=== PATIENT | male | born 1940 | race Caucasian/White ===

== ENCOUNTER 2020-10-06 10:13 | Observation (INO) | payer MEDICARE ==
[2020-10-06 10:58] LABS: #Basophils 0.1 10x3/uL (0.0-0.2); #Eosinphils 0.1 10x3/uL (0.0-0.5); #Monocytes 0.7 10x3/uL (0.0-1.1); #Neutrophils 4.6 10x3/uL (1.5-8.4); %Basophils 1.1 % (0.0-2.0); %Lymphocytes 33.2 % (18.0-47.0); %Monocytes 8.8 % (0.0-10.0); %Neutrophils 55.4 % (40.0-75.0); Hemoglobin 15.8 g/dL (13.5-17.5); Mean Corpuscular HGB CONC 34.6 g/dL (32.0-36.0); Mean Corpuscular Hemoglobin 30.9 pg (27.0-33.0); Mean Corpuscular Volume 89.4 fl (81.2-95.1); Mean Platelet Volume 11.8 fl (7.4-10.4); Platelet Count 210 10x3/uL (150-450); RBC Distribution Width 13.9 % (11.5-14.5); Red Blood Cell (RBC) Count 5.11 10x6/uL (4.32-5.72); White Blood Cell (WBC) Count 8.3 10x3/uL (3.5-10.5)
[2020-10-06 11:17] LABS: ALT (SGPT) 20 U/L (8-55); AST (SGOT) 22 U/L (5-34); Albumin 4.4 g/dL (3.4-4.8); Alkaline Phosphatase 90 U/L (40-110); Anion Gap 15 mmol/L (10-20); BUN (Urea Nitrogen) 14 mg/dL (8.4-25.7); Bilirubin, Total 1.1 mg/dL (0.2-1.2); Calc. Creatinine Clearance 0 mL/min (70-130); Calcium 9.1 mg/dL (7.8-10.44); Carbon Dioxide 26 mmol/L (23-31); Chloride 104 mmol/L (98-107); D-Dimer Test 0.2 mg/L FEU (0.19-0.50); Globulin 1.8 g/dL (2.4-3.5); Glucose 102 mg/dL (83-110); INR-International Normal Ratio 1.1; Magnesium 2.3 mg/dL (1.6-2.6); PTT 32.3 sec (22.0-33.0); Potassium 4.5 mmol/L (3.5-5.1); Protein, Total 6.2 g/dL (5.8-8.1); Prothrombin Time 12.2 sec (9.5-12.1); Sodium 140 mmol/L (136-145)
[2020-10-06] MEDS ORDERED: Acetaminophen 325 MG TAB PO PRN (12:14)
[2020-10-06] MEDS ORDERED: Ondansetron PF 4 MG/2 ML Vial IVP PRN (12:14)
[2020-10-06 16:43] VITALS: BMI 27.2
[2020-10-06] MEDS: Apixaban 5 MG TAB PO SCH (20:32)
[2020-10-06] MEDS ORDERED: Atorvastatin Calcium 40 MG TAB PO SCH (21:00)
[2020-10-07 01:20] LABS: SARS-CoV-2 PCR by NAA Not Detected (NotDetected)
[2020-10-07 05:05] LABS: #Basophils 0.1 10x3/uL (0.0-0.2); #Eosinphils 0.1 10x3/uL (0.0-0.5); #Monocytes 0.6 10x3/uL (0.0-1.1); %Basophils 0.9 % (0.0-2.0); %Eosinophils 1.9 % (0.0-6.0); %Lymphocytes 35.5 % (18.0-47.0); %Monocytes 8.4 % (0.0-10.0); Hemoglobin 15.3 g/dL (13.5-17.5); Mean Corpuscular HGB CONC 33.6 g/dL (32.0-36.0); Mean Corpuscular Hemoglobin 30.5 pg (27.0-33.0); Mean Corpuscular Volume 90.8 fl (81.2-95.1); Mean Platelet Volume 12.1 fl (7.4-10.4); Platelet Count 192 10x3/uL (150-450); RBC Distribution Width 13.6 % (11.5-14.5); Red Blood Cell (RBC) Count 5.01 10x6/uL (4.32-5.72); White Blood Cell (WBC) Count 7.5 10x3/uL (3.5-10.5)
[2020-10-07 05:24] LABS: ALT (SGPT) 16 U/L (8-55); AST (SGOT) 23 U/L (5-34); Albumin 3.8 g/dL (3.4-4.8); Alkaline Phosphatase 76 U/L (40-110); Anion Gap 15 mmol/L (10-20); BUN (Urea Nitrogen) 15 mg/dL (8.4-25.7); Bilirubin, Total 0.9 mg/dL (0.2-1.2); Calc. Creatinine Clearance 91 mL/min (70-130); Calcium 8.3 mg/dL (7.8-10.44); Carbon Dioxide 21 mmol/L (23-31); Chloride 106 mmol/L (98-107); Glucose 89 mg/dL (83-110); Potassium 3.9 mmol/L (3.5-5.1); Protein, Total 5.8 g/dL (5.8-8.1); Sodium 138 mmol/L (136-145)
[2020-10-07 08:17] VITALS: TEMP 97.9
[2020-10-07] MEDS: Apixaban 5 MG TAB PO SCH (08:53)
[2020-10-07] MEDS ORDERED: Aspirin 81 mg Enteric Coated Tablet PO SCH (09:00)
[2020-10-07 15:27] VITALS: BP 147/98
== END 2020-10-07 15:20 | disposition home or self-care (01) ==
LOC: CSHERS 10:13 → SUATTDRO 10:13 → CSHTELE 16:00
PROVIDERS: ADMIT Internal Medicine; ATTEND Internal Medicine
DX: R55 Syncope and collapse (principal); I48.91 Unspecified atrial fibrillation; I38 Endocarditis, valve unspecified; Z79.899 Other long term (current) drug therapy; I10 Essential (primary) hypertension; E78.5 Hyperlipidemia, unspecified; Z79.01 Long term (current) use of anticoagulants; Z86.73 Personal history of transient ischemic attack (TIA), and cerebral infarction without residual deficits; Z20.822 Contact with and (suspected) exposure to COVID-19
CPT/HCPCS: 71045; 80053 ×2; 83735; 83880; 84484; 85025 ×2; 85379; 85610; 85730; 93005; 93306; 93880; 94760; 97116; 97139 ×3; 99285; U0003; U0005; 87635; G0378

== ENCOUNTER 2020-10-14 09:29 | Inpatient (IN) | payer MEDICARE ==
[2020-10-14 10:21] LABS: #Basophils 0.1 10x3/uL (0.0-0.2); #Eosinphils 0.1 10x3/uL (0.0-0.5); #Monocytes 0.6 10x3/uL (0.0-1.1); #Neutrophils 3.8 10x3/uL (1.5-8.4); %Basophils 0.9 % (0.0-2.0); %Eosinophils 1.5 % (0.0-6.0); %Lymphocytes 30.1 % (18.0-47.0); %Monocytes 8.8 % (0.0-10.0); %Neutrophils 58.4 % (40.0-75.0); Hemoglobin 15.1 g/dL (13.5-17.5); Mean Corpuscular HGB CONC 33.9 g/dL (32.0-36.0); Mean Corpuscular Hemoglobin 30.9 pg (27.0-33.0); Mean Corpuscular Volume 91.2 fl (81.2-95.1); Mean Platelet Volume 11.7 fl (7.4-10.4); Platelet Count 207 10x3/uL (150-450); RBC Distribution Width 13.8 % (11.5-14.5); Red Blood Cell (RBC) Count 4.88 10x6/uL (4.32-5.72); White Blood Cell (WBC) Count 6.6 10x3/uL (3.5-10.5)
[2020-10-14 10:43] LABS: ALT (SGPT) 17 U/L (8-55); AST (SGOT) 17 U/L (5-34); Albumin 4.4 g/dL (3.4-4.8); Alkaline Phosphatase 90 U/L (40-110); Anion Gap 14 mmol/L (10-20); BUN (Urea Nitrogen) 14 mg/dL (8.4-25.7); CK (CPK) 108 U/L (30-200); Calc. Creatinine Clearance 0 mL/min (70-130); Calcium 8.9 mg/dL (7.8-10.44); Carbon Dioxide 27 mmol/L (23-31); Chloride 103 mmol/L (98-107); Globulin 1.6 g/dL (2.4-3.5); Glucose 136 mg/dL (83-110); Sodium 140 mmol/L (136-145)
[2020-10-14 12:19] LABS: Bilirubin Neg (Negative); Blood, Urine Negative (Negative); Clarity Clear (Clear); Glucose, Urine (Dipstick) Normal (Negative); Ketone, Urine Negative (Negative); Leukocyte Negative (Negative); Nitrite Negative (Negative); Protein, Urine (Dipstick) Negative (Neg-Trace); Urobilinogen Normal mg/dL (Less than 2)
[2020-10-14] MEDS ORDERED: Ondansetron PF 4 MG/2 ML Vial IVP PRN (12:25)
[2020-10-14] MEDS ORDERED: Ondansetron ODT 4 MG TAB PO PRN (12:25)
[2020-10-14] MEDS ORDERED: Acetaminophen 325 MG TAB PO PRN (12:25)
[2020-10-14] MEDS ORDERED: Acetaminophen 650 MG Suppository PR PRN (12:25)
[2020-10-14 13:06] LABS: Troponin I 0.011 ng/mL (< 0.028)
[2020-10-14 15:06] VITALS: BMI 27.2
[2020-10-14 16:47] LABS: Troponin I Less than 0.010 ng/mL (< 0.028)
[2020-10-14] MEDS ORDERED: Atorvastatin Calcium 40 MG TAB PO SCH (21:00)
[2020-10-14] MEDS ORDERED: Propafenone HCl 150 MG TAB PO SCH (21:00)
[2020-10-15 01:17] LABS: SARS-CoV-2 PCR by NAA Not Detected (NotDetected)
[2020-10-15 04:42] LABS: #Basophils 0.1 10x3/uL (0.0-0.2); #Eosinphils 0.1 10x3/uL (0.0-0.5); #Monocytes 0.6 10x3/uL (0.0-1.1); %Basophils 0.9 % (0.0-2.0); %Eosinophils 1.4 % (0.0-6.0); %Lymphocytes 30.1 % (18.0-47.0); %Neutrophils 58.3 % (40.0-75.0); Hemoglobin 14.4 g/dL (13.5-17.5); Mean Corpuscular HGB CONC 33.5 g/dL (32.0-36.0); Mean Corpuscular Hemoglobin 30.5 pg (27.0-33.0); Mean Corpuscular Volume 91.1 fl (81.2-95.1); Mean Platelet Volume 11.4 fl (7.4-10.4); Platelet Count 188 10x3/uL (150-450); RBC Distribution Width 13.7 % (11.5-14.5); Red Blood Cell (RBC) Count 4.72 10x6/uL (4.32-5.72); White Blood Cell (WBC) Count 6.9 10x3/uL (3.5-10.5)
[2020-10-15 04:55] LABS: Anion Gap 14 mmol/L (10-20); BUN (Urea Nitrogen) 14 mg/dL (8.4-25.7); Calc. Creatinine Clearance 84 mL/min (70-130); Calcium 8.4 mg/dL (7.8-10.44); Carbon Dioxide 24 mmol/L (23-31); Chloride 105 mmol/L (98-107); Glucose 103 mg/dL (83-110); Potassium 3.7 mmol/L (3.5-5.1); Sodium 139 mmol/L (136-145)
[2020-10-15] MEDS ORDERED: CEFAZOLIN 1 GM VIAL ONE ×2 (07:25→07:51)
[2020-10-15] MEDS ORDERED: Gentamicin 80 MG/2 ML VIAL ONE (07:25)
[2020-10-15] MEDS ORDERED: Lidocaine 1% (PF) 30 ML VIAL ONE (07:31)
[2020-10-15] MEDS ORDERED: Midazolam HCl 5 mg/5 ml Vial ONE (08:05)
[2020-10-15] MEDS ORDERED: Fentanyl 100 MCG/2 ML VIAL ONE (08:05)
[2020-10-15] MEDS ORDERED: Metoprolol Tartrate 25 MG TAB PO SCH ×2 (09:45→21:00)
[2020-10-15 13:06] VITALS: BP 136/69; TEMP 98.3
[2020-10-15] MEDS ORDERED: Propafenone HCl 150 MG TAB PO SCH (21:00)
[2020-10-15] MEDS ORDERED: Cefadroxil Hydrate 250 mg/5 ml Suspensio PO SCH (21:00)
== END 2020-10-15 15:05 | disposition home or self-care (01) | DRG 243 ==
LOC: CSHERS 09:29 → CSHTELE 14:32
PROVIDERS: ADMIT Internal Medicine; ATTEND Internal Medicine
PROC: 0JH606Z Insertion of Pacemaker, Dual Chamber into Chest Subcutaneous Tissue and Fascia, Open Approach (ICD-10-PCS; principal; 2020-10-15)
PROC: 02HK3JZ Insertion of Pacemaker Lead into Right Ventricle, Percutaneous Approach (ICD-10-PCS; 2020-10-15)
PROC: 02H63JZ Insertion of Pacemaker Lead into Right Atrium, Percutaneous Approach (ICD-10-PCS; 2020-10-15)
DX: I49.5 Sick sinus syndrome (principal); I48.19 Other persistent atrial fibrillation; Z20.822 Contact with and (suspected) exposure to COVID-19; S00.81XA Abrasion of other part of head, initial encounter; I10 Essential (primary) hypertension; E78.5 Hyperlipidemia, unspecified; Z79.01 Long term (current) use of anticoagulants; Z98.42 Cataract extraction status, left eye; Z98.41 Cataract extraction status, right eye; Z79.82 Long term (current) use of aspirin; Z79.899 Other long term (current) drug therapy; M54.9 Dorsalgia, unspecified; W19.XXXA Unspecified fall, initial encounter; G62.9 Polyneuropathy, unspecified; M21.372 Foot drop, left foot; M21.371 Foot drop, right foot; Z82.49 Family history of ischemic heart disease and other diseases of the circulatory system
CPT/HCPCS: 33208; 36415; 70450; 71045; 80048; 80053; 81003; 82550; 83735; 83880; 84484; 85025; 87635; 93005; 99152; 99153; J0690; J1580; J2001; J2250; J3010; U0003; U0005

== ENCOUNTER 2020-10-31 19:03 | Inpatient (IN) | payer MEDICARE ==
[2020-10-31] MEDS ORDERED: methylPREDNISolone Sod Succ/PF 125 MG/2 ML VIAL ONE (19:14)
[2020-10-31] MEDS ORDERED: Famotidine/PF 20 mg/2ml Vial ONE (19:15)
[2020-10-31] MEDS ORDERED: diphenhydrAMINE 50 MG/ML VIAL ONE (19:15)
[2020-10-31] MEDS ORDERED: Ketamine 50 MG/ML (10ML VIAL) ONE (19:31)
[2020-10-31] MEDS ORDERED: Racepinephrine 2.25% 0.5 ML NEB ONE (19:34)
[2020-10-31] MEDS ORDERED: Rocuronium Bromide 10 MG/ML (10ML VIAL) ONE (19:35)
[2020-10-31 19:44] LABS: #Basophils 0.1 10x3/uL (0.0-0.2); #Eosinphils 0.3 10x3/uL (0.0-0.5); #Monocytes 0.8 10x3/uL (0.0-1.1); #Neutrophils 5.4 10x3/uL (1.5-8.4); %Basophils 0.5 % (0.0-2.0); %Eosinophils 2.9 % (0.0-6.0); %Lymphocytes 35.7 % (18.0-47.0); %Monocytes 7.5 % (0.0-10.0); %Neutrophils 53.2 % (40.0-75.0); Hemoglobin 14.2 g/dL (13.5-17.5); Mean Corpuscular Hemoglobin 30.3 pg (27.0-33.0); Mean Corpuscular Volume 91.9 fl (81.2-95.1); Mean Platelet Volume 11.2 fl (7.4-10.4); Platelet Count 215 10x3/uL (150-450); Red Blood Cell (RBC) Count 4.68 10x6/uL (4.32-5.72); White Blood Cell (WBC) Count 10.1 10x3/uL (3.5-10.5)
[2020-10-31 19:52] LABS: ALT (SGPT) 24 U/L (8-55); AST (SGOT) 23 U/L (5-34); Albumin 4.2 g/dL (3.4-4.8); Alkaline Phosphatase 122 U/L (40-110); Anion Gap 13 mmol/L (10-20); BUN (Urea Nitrogen) 19 mg/dL (8.4-25.7); Bilirubin, Total 0.8 mg/dL (0.2-1.2); Calc. Creatinine Clearance 0 mL/min (70-130); Calcium 9.2 mg/dL (7.8-10.44); Carbon Dioxide 27 mmol/L (23-31); Chloride 102 mmol/L (98-107); Globulin 1.8 g/dL (2.4-3.5); Glucose 155 mg/dL (83-110); Sodium 138 mmol/L (136-145)
[2020-10-31] MEDS ORDERED: Amiodarone 150 MG/3 ML VIAL ONE (19:53)
[2020-10-31] MEDS ORDERED: fentaNYL Citrate/PF 50 MCG/ML (20ML VIAL) ONE (19:56)
[2020-10-31] MEDS ORDERED: Amiodarone In Dextrose 200 ML ONE (20:10)
[2020-10-31] MEDS ORDERED: Ondansetron PF 4 MG/2 ML Vial IVP PRN (20:31)
[2020-10-31] MEDS ORDERED: fentaNYL Citrate/PF 2,000 MCG in Sodium Chloride 0.9% 60 ML IV PRN (20:35)
[2020-10-31] MEDS ORDERED: Diltiazem 125 MG/25 ML ONE (21:09)
[2020-10-31 21:45] LABS: Bilirubin Neg (Negative); Blood, Urine 10 (Negative); Clarity Clear (Clear); Glucose, Urine (Dipstick) Normal (Negative); Ketone, Urine Negative (Negative); Leukocyte Negative (Negative); Nitrite Negative (Negative); Protein, Urine (Dipstick) 100 mg/dl (Neg-Trace); Specific Gravity, Urine 1.025 (1.002-1.036)
[2020-10-31 21:56] LABS: Bacteria/HPF 2+ HPF (None Seen); Mucous/LPF 1+ LPF (<2+); RBC/HPF 0-3 HPF (0-3); Squamous Epithelial 0-3 HPF (0-3); WBC/HPF 0-3 HPF (0-3)
[2020-10-31 22:14] LABS: SARS-CoV-2 NAA Rapid Test Not Detected (NotDetected)
[2020-10-31 23:11] VITALS: BMI 30.1
[2020-10-31] MEDS ORDERED: methylPREDNISolone Sod Succ/PF 125 MG/2 ML VIAL IVP SCH (23:15)
[2020-10-31] MEDS ORDERED: Diltiazem 125 MG in Sodium Chloride 0.9% 100 ML IVPB SCH (23:15)
[2020-10-31] MEDS ORDERED: fentaNYL Citrate-0.9 % NaCl/PF 100 ML IVPB SCH (23:30)
[2020-10-31] MEDS ORDERED: Enoxaparin Sodium 100 MG/ML SYRINGE SC SCH (23:45)
[2020-10-31] MEDS: Atorvastatin Calcium 40 MG TAB PO SCH (23:56)
[2020-11-01] MEDS: Propofol 1,000 MG/100 ML VIAL IV PRN ×3 (00:02→23:16)
[2020-11-01] MEDS: Famotidine/PF 20 mg/2ml Vial SLOW IVP SCH ×3 (00:03→21:11)
[2020-11-01] MEDS: Propafenone HCl 150 MG TAB PO SCH ×3 (00:04→21:12)
[2020-11-01] MEDS: diphenhydrAMINE 50 MG/ML VIAL IVP SCH ×5 (00:22→23:15)
[2020-11-01 01:04] LABS: Actual Bicarbonate (HCO3a) 23.7 mEq/L (22-28); Base Excess (BEa) -1.6 mEq/L (-2.0 to +3.0); Calcium, Ionized (arterial) 1.11 mmol/L (1.12-1.30); Carboxyhemoglobin (COHb) 0.4 gm% (0.0-3.0); Hemoglobin (Hb) 13.3 g/dL (14.0-18.0); O2 Tension (PaO2), arterial 107.3 mmHg (> 60.0); Puncture Site RRA; pH, Arterial 7.37 (7.35-7.45)
[2020-11-01] MEDS: methylPREDNISolone Sod Succ 40 MG VIAL IVP SCH ×4 (03:23→21:11)
[2020-11-01 04:30] LABS: #Monocytes 0.2 10x3/uL (0.0-1.1); #Neutrophils 8.8 10x3/uL (1.5-8.4); %Basophils 0.2 % (0.0-2.0); %Lymphocytes 6.5 % (18.0-47.0); %Monocytes 1.8 % (0.0-10.0); Hemoglobin 13.3 g/dL (13.5-17.5); Mean Corpuscular HGB CONC 32.7 g/dL (32.0-36.0); Mean Corpuscular Hemoglobin 30.8 pg (27.0-33.0); Mean Corpuscular Volume 94.2 fl (81.2-95.1); Mean Platelet Volume 11.3 fl (7.4-10.4); Platelet Count 184 10x3/uL (150-450); Red Blood Cell (RBC) Count 4.32 10x6/uL (4.32-5.72); White Blood Cell (WBC) Count 9.6 10x3/uL (3.5-10.5)
[2020-11-01 04:44] LABS: ALT (SGPT) 25 U/L (8-55); AST (SGOT) 21 U/L (5-34); Albumin 3.7 g/dL (3.4-4.8); Alkaline Phosphatase 112 U/L (40-110); Anion Gap 14 mmol/L (10-20); BUN (Urea Nitrogen) 21 mg/dL (8.4-25.7); Bilirubin, Total 0.8 mg/dL (0.2-1.2); Calc. Creatinine Clearance 84 mL/min (70-130); Carbon Dioxide 20 mmol/L (23-31); Chloride 105 mmol/L (98-107); Globulin 1.9 g/dL (2.4-3.5); Glucose 207 mg/dL (83-110); Potassium 4.6 mmol/L (3.5-5.1); Protein, Total 5.6 g/dL (5.8-8.1); Sodium 134 mmol/L (136-145)
[2020-11-01] MEDS ORDERED: Enoxaparin Sodium 100 MG/ML SYRINGE ONE (07:54)
[2020-11-01] MEDS: Enoxaparin Sodium 100 MG/ML SYRINGE SC SCH ×2 (07:56→21:11)
[2020-11-01] MEDS ORDERED: Enoxaparin Sodium 100 MG/ML SYRINGE SC SCH (09:00)
[2020-11-01] MEDS: Vit A,C & E/Lutein/Minerals Tablet PO SCH ×2 (09:21→16:43)
[2020-11-01 10:05] LABS: Actual Bicarbonate (HCO3a) 20.2 mEq/L (22-28); CO2 Tension 34.5 mmHg (35.0-45.0); Calcium, Ionized (arterial) 1.12 mmol/L (1.12-1.30); Carboxyhemoglobin (COHb) 0.6 gm% (0.0-3.0); Hemoglobin (Hb) 14.2 g/dL (14.0-18.0); O2 Tension (PaO2), arterial 86.3 mmHg (> 60.0); Potassium - ABG Lab 4.1 mmol/L (3.70-5.30); Puncture Site RRA; pH, Arterial 7.39 (7.35-7.45)
[2020-11-01 10:08] LABS: ALV-art Gradient 155.775 mmHg (0-20)
[2020-11-01] MEDS: Metoprolol Tartrate 25 MG TAB PO SCH ×2 (10:19→21:11)
[2020-11-01] MEDS: Atorvastatin Calcium 40 MG TAB PO SCH (21:10)
[2020-11-02] MEDS: methylPREDNISolone Sod Succ 40 MG VIAL IVP SCH ×4 (03:50→21:04)
[2020-11-02] MEDS: Propofol 1,000 MG/100 ML VIAL IV PRN (04:10)
[2020-11-02 04:15] LABS: #Monocytes 0.6 10x3/uL (0.0-1.1); #Neutrophils 9.9 10x3/uL (1.5-8.4); %Basophils 0.2 % (0.0-2.0); %Eosinophils 0.1 % (0.0-6.0); %Lymphocytes 9.4 % (18.0-47.0); %Monocytes 5.2 % (0.0-10.0); %Neutrophils 84.3 % (40.0-75.0); Hemoglobin 13.1 g/dL (13.5-17.5); Mean Corpuscular HGB CONC 33.4 g/dL (32.0-36.0); Mean Corpuscular Hemoglobin 30.5 pg (27.0-33.0); Mean Corpuscular Volume 91.2 fl (81.2-95.1); Mean Platelet Volume 11.7 fl (7.4-10.4); Platelet Count 175 10x3/uL (150-450); RBC Distribution Width 14.5 % (11.5-14.5); White Blood Cell (WBC) Count 11.8 10x3/uL (3.5-10.5)
[2020-11-02] MEDS: diphenhydrAMINE 50 MG/ML VIAL IVP SCH ×4 (05:39→23:47)
[2020-11-02] MEDS: Famotidine/PF 20 mg/2ml Vial SLOW IVP SCH ×2 (07:51→21:04)
[2020-11-02] MEDS: Vit A,C & E/Lutein/Minerals Tablet PO SCH ×2 (07:51→14:50)
[2020-11-02] MEDS: Enoxaparin Sodium 100 MG/ML SYRINGE SC SCH ×2 (07:51→21:03)
[2020-11-02] MEDS: Propafenone HCl 150 MG TAB PO SCH ×2 (07:52→21:04)
[2020-11-02] MEDS: Metoprolol Tartrate 25 MG TAB PO SCH ×2 (07:52)
[2020-11-02 08:57] LABS: Anion Gap 16 mmol/L (10-20); BUN (Urea Nitrogen) 23 mg/dL (8.4-25.7); Calc. Creatinine Clearance 76 mL/min (70-130); Calcium 8.8 mg/dL (7.8-10.44); Carbon Dioxide 23 mmol/L (23-31); Chloride 105 mmol/L (98-107); Glucose 160 mg/dL (83-110); Potassium 5.5 mmol/L (3.5-5.1); Sodium 138 mmol/L (136-145)
[2020-11-02 09:03] LABS: Actual Bicarbonate (HCO3a) 21.6 mEq/L (22-28); Base Excess (BEa) -2.1 mEq/L (-2.0 to +3.0); Calcium, Ionized (arterial) 1.12 mmol/L (1.12-1.30); Carboxyhemoglobin (COHb) 0.4 gm% (0.0-3.0); Hemoglobin (Hb) 14.8 g/dL (14.0-18.0); Potassium - ABG Lab 4.2 mmol/L (3.70-5.30); Puncture Site RRA; pH, Arterial 7.42 (7.35-7.45)
[2020-11-02] MEDS ORDERED: Metoprolol Tartrate 25 MG TAB PO SCH ×2 (12:30→21:00)
[2020-11-02] MEDS: Atorvastatin Calcium 40 MG TAB PO SCH (21:03)
[2020-11-03] MEDS ORDERED: Metoprolol Tartrate 25 MG TAB PO SCH (01:45)
[2020-11-03] MEDS: methylPREDNISolone Sod Succ 40 MG VIAL IVP SCH ×3 (02:19→20:06)
[2020-11-03 04:47] LABS: #Monocytes 0.4 10x3/uL (0.0-1.1); #Neutrophils 8.3 10x3/uL (1.5-8.4); %Lymphocytes 5.8 % (18.0-47.0); %Monocytes 3.8 % (0.0-10.0); %Neutrophils 89.7 % (40.0-75.0); Hemoglobin 12.9 g/dL (13.5-17.5); Mean Corpuscular Hemoglobin 30.7 pg (27.0-33.0); Mean Corpuscular Volume 93.1 fl (81.2-95.1); Mean Platelet Volume 11.6 fl (7.4-10.4); Platelet Count 198 10x3/uL (150-450); RBC Distribution Width 14.7 % (11.5-14.5); White Blood Cell (WBC) Count 9.2 10x3/uL (3.5-10.5)
[2020-11-03 04:59] LABS: Anion Gap 13 mmol/L (10-20); BUN (Urea Nitrogen) 21 mg/dL (8.4-25.7); Calc. Creatinine Clearance 98 mL/min (70-130); Calcium 7.9 mg/dL (7.8-10.44); Carbon Dioxide 22 mmol/L (23-31); Chloride 109 mmol/L (98-107); Glucose 155 mg/dL (83-110); Potassium 4.3 mmol/L (3.5-5.1); Sodium 140 mmol/L (136-145)
[2020-11-03] MEDS: diphenhydrAMINE 50 MG/ML VIAL IVP SCH ×2 (05:55→20:07)
[2020-11-03] MEDS: Vit A,C & E/Lutein/Minerals Tablet PO SCH ×2 (08:53→16:53)
[2020-11-03] MEDS: Famotidine/PF 20 mg/2ml Vial SLOW IVP SCH ×2 (08:53→20:06)
[2020-11-03] MEDS: Propafenone HCl 150 MG TAB PO SCH ×2 (08:53→20:07)
[2020-11-03] MEDS: Metoprolol Tartrate 50 MG TAB PO SCH ×2 (08:54→20:07)
[2020-11-03] MEDS: Enoxaparin Sodium 100 MG/ML SYRINGE SC SCH (08:54)
[2020-11-03] MEDS ORDERED: diphenhydrAMINE 50 MG/ML VIAL IVP SCH (11:00)
[2020-11-03] MEDS: Atorvastatin Calcium 40 MG TAB PO SCH (20:07)
[2020-11-03] MEDS: Apixaban 5 MG TAB PO SCH (20:07)
[2020-11-04 05:23] LABS: #Monocytes 0.4 10x3/uL (0.0-1.1); #Neutrophils 6.6 10x3/uL (1.5-8.4); %Basophils 0.1 % (0.0-2.0); %Lymphocytes 7.3 % (18.0-47.0); %Monocytes 5.2 % (0.0-10.0); %Neutrophils 86.4 % (40.0-75.0); Hemoglobin 13.3 g/dL (13.5-17.5); Mean Corpuscular HGB CONC 32.9 g/dL (32.0-36.0); Mean Corpuscular Hemoglobin 30.6 pg (27.0-33.0); Mean Corpuscular Volume 93.1 fl (81.2-95.1); Mean Platelet Volume 11.4 fl (7.4-10.4); Platelet Count 186 10x3/uL (150-450); RBC Distribution Width 14.6 % (11.5-14.5); Red Blood Cell (RBC) Count 4.34 10x6/uL (4.32-5.72); White Blood Cell (WBC) Count 7.7 10x3/uL (3.5-10.5)
[2020-11-04 05:41] LABS: Anion Gap 12 mmol/L (10-20); BUN (Urea Nitrogen) 24 mg/dL (8.4-25.7); Calc. Creatinine Clearance 97 mL/min (70-130); Carbon Dioxide 27 mmol/L (23-31); Chloride 106 mmol/L (98-107); Glucose 144 mg/dL (83-110); Potassium 4.5 mmol/L (3.5-5.1); Sodium 140 mmol/L (136-145)
[2020-11-04] MEDS: Vit A,C & E/Lutein/Minerals Tablet PO SCH (06:14)
[2020-11-04] MEDS: Famotidine/PF 20 mg/2ml Vial SLOW IVP SCH (08:43)
[2020-11-04] MEDS: Propafenone HCl 150 MG TAB PO SCH (08:43)
[2020-11-04] MEDS: Apixaban 5 MG TAB PO SCH (08:43)
[2020-11-04] MEDS: Metoprolol Tartrate 50 MG TAB PO SCH (08:43)
[2020-11-04] MEDS: diphenhydrAMINE 50 MG/ML VIAL IVP SCH (08:43)
[2020-11-04] MEDS: methylPREDNISolone Sod Succ 40 MG VIAL IVP SCH (08:43)
[2020-11-04 12:04] VITALS: BP 138/88; TEMP 98
== END 2020-11-04 14:48 | disposition home or self-care (01) | DRG 915 ==
LOC: CSHERS 19:03 → CSHICU 23:02 → CSHTELE 11-03 15:00
PROVIDERS: ADMIT Student in an Organized Health Care Education/Training Program; ATTEND Family Medicine
PROC: 30233K1 Transfusion of Nonautologous Frozen Plasma into Peripheral Vein, Percutaneous Approach (ICD-10-PCS; principal; 2020-10-31)
PROC: 0BH17EZ Insertion of Endotracheal Airway into Trachea, Via Natural or Artificial Opening (ICD-10-PCS; 2020-10-31)
PROC: 5A1945Z Respiratory Ventilation, 24-96 Consecutive Hours (ICD-10-PCS; 2020-10-31)
DX: T78.3XXA Angioneurotic edema, initial encounter (principal); J96.01 Acute respiratory failure with hypoxia; T46.4X5A Adverse effect of angiotensin-converting-enzyme inhibitors, initial encounter; Z20.822 Contact with and (suspected) exposure to COVID-19; I48.91 Unspecified atrial fibrillation; E78.5 Hyperlipidemia, unspecified; G62.9 Polyneuropathy, unspecified; I12.9 Hypertensive chronic kidney disease with stage 1 through stage 4 chronic kidney disease, or unspecified chronic kidney disease; N18.2 Chronic kidney disease, stage 2 (mild); I49.5 Sick sinus syndrome; I95.9 Hypotension, unspecified; Z90.89 Acquired absence of other organs; Z79.01 Long term (current) use of anticoagulants; Z95.0 Presence of cardiac pacemaker; Z79.82 Long term (current) use of aspirin; Z79.899 Other long term (current) drug therapy
CPT/HCPCS: 31500; 36415; 36430; 36600; 71045; 80048; 80053; 81003; 81015; 82805; 83735; 83880; 84443; 84484; 85025; 86850; 86900; 86901; 93005; 93010; 94002; 94003; 94150; 94640; 94760; 94799; J0282; J1200; J1650; J2704; J2920; J2930; J3010; J3490; P9059; S0028; U0002

== ENCOUNTER 2021-04-13 08:01 | Emergency (ER) | payer MEDICARE ==
[2021-04-13 09:03] LABS: #Basophils 0.1 10x3/uL (0.0-0.2); #Eosinphils 0.2 10x3/uL (0.0-0.5); #Monocytes 0.9 10x3/uL (0.0-1.1); #Neutrophils 6.8 10x3/uL (1.5-8.4); %Basophils 0.9 % (0.0-2.0); %Eosinophils 1.9 % (0.0-6.0); %Lymphocytes 14.4 % (18.0-47.0); %Monocytes 9.8 % (0.0-10.0); %Neutrophils 72.7 % (40.0-75.0); Hemoglobin 15.4 g/dL (13.5-17.5); Mean Corpuscular HGB CONC 34.5 g/dL (32.0-36.0); Mean Corpuscular Volume 89.9 fl (81.2-95.1); Mean Platelet Volume 10.9 fl (7.4-10.4); Platelet Count 203 10x3/uL (150-450); RBC Distribution Width 14.1 % (11.5-14.5); Red Blood Cell (RBC) Count 4.97 10x6/uL (4.32-5.72); White Blood Cell (WBC) Count 9.3 10x3/uL (3.5-10.5)
[2021-04-13] MEDS ORDERED: Ketorolac Tromethamine 30 MG/ML VIAL ONE (09:13)
[2021-04-13 09:23] LABS: ALT (SGPT) 22 U/L (8-55); AST (SGOT) 24 U/L (5-34); Albumin 4.3 g/dL (3.4-4.8); Alkaline Phosphatase 84 U/L (40-110); Anion Gap 13 mmol/L (10-20); BUN (Urea Nitrogen) 17 mg/dL (8.4-25.7); Bilirubin, Total 0.8 mg/dL (0.2-1.2); Calc. Creatinine Clearance 0 mL/min (70-130); Calcium 8.7 mg/dL (7.8-10.44); Carbon Dioxide 25 mmol/L (23-31); Chloride 105 mmol/L (98-107); Globulin 1.6 g/dL (2.4-3.5); Glucose 147 mg/dL (83-110); Lipase 43 U/L (8-78); Potassium 3.9 mmol/L (3.5-5.1); Protein, Total 5.9 g/dL (5.8-8.1); Sodium 139 mmol/L (136-145)
[2021-04-13 09:42] LABS: Bilirubin Neg (Negative); Blood, Urine 250 (Negative); Clarity Cloudy (Clear); Glucose, Urine (Dipstick) Normal (Negative); Ketone, Urine 5 mg/dL (Negative); Leukocyte 25 (Negative); Nitrite Negative (Negative); Protein, Urine (Dipstick) 100 mg/dl (Neg-Trace); Specific Gravity, Urine 1.025 (1.002-1.036)
[2021-04-13 09:51] LABS: RBC/HPF Greater than 50 HPF (0-3); Squamous Epithelial 0-3 HPF (0-3); WBC/HPF 0-3 HPF (0-3)
[2021-04-13 09:52] LABS: Bacteria/HPF Rare-Few HPF (None Seen); Calcium Oxalate Crystals 1+ HPF (None Seen)
== END 2021-04-13 10:11 | disposition home or self-care (01) ==
LOC: CSHERS 08:01
DX: N13.2 Hydronephrosis with renal and ureteral calculous obstruction (principal); E78.5 Hyperlipidemia, unspecified; E78.00 Pure hypercholesterolemia, unspecified; I10 Essential (primary) hypertension; I48.91 Unspecified atrial fibrillation; G47.30 Sleep apnea, unspecified; G62.9 Polyneuropathy, unspecified; Z79.01 Long term (current) use of anticoagulants; Z79.899 Other long term (current) drug therapy
CPT/HCPCS: 74176; 80053; 81003; 81015; 83690; 85025; 87086; 96374; J1885

== ENCOUNTER 2021-12-25 10:01 | Outpatient (CLI) | payer MEDICARE | END 2021-12-25 10:02 | disposition home or self-care (01) | LOC: CSHCT 10:01 | PROVIDERS: ATTEND Urology | DX: N13.2 Hydronephrosis with renal and ureteral calculous obstruction (principal) | CPT/HCPCS: 74176 ==

== ENCOUNTER 2022-03-29 14:58 | Outpatient (CLI) | payer MEDICARE | END 2022-03-29 14:59 | disposition home or self-care (01) | LOC: CSHULT 14:58 | PROVIDERS: ATTEND Urology | DX: N20.0 Calculus of kidney (principal); N28.1 Cyst of kidney, acquired | CPT/HCPCS: 76770 ==

== ENCOUNTER 2022-08-09 07:14 | Observation (INO) | payer MEDICARE ==
[2022-08-09 08:05] LABS: #Basophils 0.1 10x3/uL (0.0-0.2); #Eosinphils 0.1 10x3/uL (0.0-0.5); #Monocytes 0.5 10x3/uL (0.0-1.1); #Neutrophils 3.6 10x3/uL (1.5-8.4); %Basophils 0.9 % (0.0-2.0); %Eosinophils 1.5 % (0.0-6.0); %Lymphocytes 33.2 % (18.0-47.0); %Monocytes 8.3 % (0.0-10.0); %Neutrophils 55.6 % (40.0-75.0); Hemoglobin 16.6 g/dL (13.5-17.5); Mean Corpuscular HGB CONC 34.6 g/dL (32.0-36.0); Mean Corpuscular Hemoglobin 30.9 pg (27.0-33.0); Mean Corpuscular Volume 89.4 fl (81.2-95.1); Mean Platelet Volume 11.5 fl (7.4-10.4); Platelet Count 174 10x3/uL (150-450); RBC Distribution Width 13.8 % (11.5-14.5); Red Blood Cell (RBC) Count 5.37 10x6/uL (4.32-5.72); White Blood Cell (WBC) Count 6.5 10x3/uL (3.5-10.5)
[2022-08-09 08:13] LABS: ALT (SGPT) 21 U/L (8-55); AST (SGOT) 26 U/L (5-34); Albumin 4.6 g/dL (3.4-4.8); Alkaline Phosphatase 95 U/L (40-110); Anion Gap 18 mmol/L (10-20); BUN (Urea Nitrogen) 15 mg/dL (8.4-25.7); Bilirubin, Total 1.2 mg/dL (0.2-1.2); Calc. Creatinine Clearance 0 mL/min (70-130); Calcium 9.1 mg/dL (7.8-10.44); Carbon Dioxide 24 mmol/L (23-31); Chloride 104 mmol/L (98-107); Estimated GFR 77; Globulin 1.8 g/dL (2.4-3.5); Glucose 130 mg/dL (83-110); Potassium 3.5 mmol/L (3.5-5.1); Protein, Total 6.4 g/dL (5.8-8.1); Sodium 142 mmol/L (136-145)
[2022-08-09 09:15] LABS: Bilirubin Neg (Negative); Blood, Urine Negative (Negative); Clarity Clear (Clear); Glucose, Urine (Dipstick) Normal (Negative); Ketone, Urine 5 mg/dL (Negative); Leukocyte Negative (Negative); Nitrite Negative (Negative); Protein, Urine (Dipstick) 15 mg/dl (Neg-Trace); Specific Gravity, Urine 1.015 (1.005-1.030); Urobilinogen Normal mg/dL (Less than 2)
[2022-08-09] MEDS ORDERED: Apixaban 5 MG TAB ONE (10:33)
[2022-08-09] MEDS ORDERED: Amlodipine 5 MG TAB ONE (10:34)
[2022-08-09 12:28] LABS: Troponin I Less than 0.010 ng/mL (< 0.028)
[2022-08-09] MEDS ORDERED: Acetaminophen 325 MG TAB PO PRN (12:29)
[2022-08-09] MEDS ORDERED: Senokot S 8.6-50 MG TAB PO PRN (12:29)
[2022-08-09] MEDS ORDERED: Ondansetron PF 4 MG/2 ML Vial IVP PRN (12:29)
[2022-08-09] MEDS ORDERED: Ondansetron ODT 4 MG TAB PO PRN (12:29)
[2022-08-09 15:24] LABS: Troponin I Less than 0.010 ng/mL (< 0.028)
[2022-08-09 18:52] VITALS: BMI 28.8
[2022-08-09] MEDS: Metoprolol Tartrate 50 MG TAB PO SCH (20:45)
[2022-08-09] MEDS: Apixaban 5 MG TAB PO SCH (20:45)
[2022-08-09 20:53] LABS: SARS-CoV-2 NAA Rapid Test Not Detected (NotDetected)
[2022-08-09] MEDS ORDERED: Atorvastatin Calcium 40 MG TAB PO SCH (21:00)
[2022-08-09] MEDS ORDERED: Apixaban 5 MG TAB PO SCH (21:00)
[2022-08-10 05:14] LABS: #Basophils 0.1 10x3/uL (0.0-0.2); #Eosinphils 0.1 10x3/uL (0.0-0.5); #Monocytes 0.6 10x3/uL (0.0-1.1); #Neutrophils 3.7 10x3/uL (1.5-8.4); %Basophils 0.9 % (0.0-2.0); %Eosinophils 1.9 % (0.0-6.0); %Lymphocytes 29.3 % (18.0-47.0); %Monocytes 9.6 % (0.0-10.0); %Neutrophils 58.1 % (40.0-75.0); Hemoglobin 15.8 g/dL (13.5-17.5); Mean Corpuscular HGB CONC 34.1 g/dL (32.0-36.0); Mean Corpuscular Volume 90.8 fl (81.2-95.1); Mean Platelet Volume 11.3 fl (7.4-10.4); Platelet Count 172 10x3/uL (150-450); RBC Distribution Width 13.9 % (11.5-14.5); White Blood Cell (WBC) Count 6.3 10x3/uL (3.5-10.5)
[2022-08-10 05:15] LABS: Anion Gap 15 mmol/L (10-20); BUN (Urea Nitrogen) 14 mg/dL (8.4-25.7); Calc. Creatinine Clearance 92 mL/min (70-130); Calcium 8.9 mg/dL (7.8-10.44); Carbon Dioxide 25 mmol/L (23-31); Cardiac Risk 2.9 (Less than 4.5); Chloride 105 mmol/L (98-107); Cholesterol 127 mg/dl (< 200 Desired); Estimated GFR 88; Glucose 99 mg/dL (83-110); HDL Cholesterol 44 mg/dL (>60 Neg Risk); LDL Cholesterol, Calculated 63 mg/dL; Potassium 4.2 mmol/L (3.5-5.1); Sodium 141 mmol/L (136-145); Triglycerides 100 mg/dL (Less than 150)
[2022-08-10] MEDS ORDERED: FLU VACC QS2022-23(65YR UP)/PF 240 MCG/0.7 ML SYRINGE IM ONE (09:00)
[2022-08-10] MEDS ORDERED: Vit A,C & E/Lutein/Minerals Tablet PO SCH (09:00)
[2022-08-10] MEDS ORDERED: Amlodipine 5 MG TAB PO SCH (09:00)
[2022-08-10] MEDS: Apixaban 5 MG TAB PO SCH (09:13)
[2022-08-10] MEDS: Aspirin 81 mg Enteric Coated Tablet PO SCH ×2 (09:13→09:21)
[2022-08-10] MEDS: Metoprolol Tartrate 50 MG TAB PO SCH (09:13)
[2022-08-10 12:17] VITALS: TEMP 98.6
[2022-08-10 14:52] VITALS: BP 149/88
== END 2022-08-10 14:30 | disposition home or self-care (01) ==
LOC: CSHERS 07:14 → CSHTELE 17:18
PROVIDERS: ADMIT Hospitalist; ATTEND Hospitalist
DX: R42 Dizziness and giddiness (principal); R55 Syncope and collapse; I10 Essential (primary) hypertension; E78.5 Hyperlipidemia, unspecified; H54.40 Blindness, one eye, unspecified eye; I48.0 Paroxysmal atrial fibrillation; G62.9 Polyneuropathy, unspecified; Z20.822 Contact with and (suspected) exposure to COVID-19; Z95.0 Presence of cardiac pacemaker; Z79.01 Long term (current) use of anticoagulants; Z79.899 Other long term (current) drug therapy; Z88.8 Allergy status to other drugs, medicaments and biological substances; R79.89 Other specified abnormal findings of blood chemistry; Z85.828 Personal history of other malignant neoplasm of skin; Z85.820 Personal history of malignant melanoma of skin
CPT/HCPCS: 0240U; 70450; 70551; 71045; 71046; 80048; 80053; 80061; 81003; 83880; 84484 ×2; 85025 ×2; 93005; 93306; 93880; 94660 ×2; 94760 ×2; 96360; 99285; G0378 ×3; 36415